=== PATIENT | female | born 1965 | race Caucasian/White ===

== ENCOUNTER → 2016-08-30 | Outpatient (REF) | payer OTHER ==
[~2016-08-30] MED LIST: /CELE20CA OR; /DULO30CA PO; /LOR25TA PO; /MIRT30TA OR; /TIOT18INH INH; ACET500C OR; ADVAIR PO; CALCTAB22 OR; LIDO5DIS EX; MELOPOW PO; MULTIVIT PO; OMEP20TA7 OR; QVAR INH; SIMV20TA2 OR; SING10TA31 OR; TIZA2TAB OR; TOPI100T OR; TYLENOL #3 OR; VARE1TA OR; VENTAER INFIL; VICO5TAB OR; VIT D 2000 PO; advil PO
== END ==
LOC: M SFHCWAGY 15:32
PROVIDERS: ATTEND Family Medicine
DX: Z12.4 Encounter for screening for malignant neoplasm of cervix (principal); R87.5 Abnormal microbiological findings in specimens from female genital organs

== ENCOUNTER → 2016-08-30 | Outpatient (CLI) | payer OTHER ==
--- NOTE | 2016-08-30 16:46 | REP ---
BILATERAL MAMMOGRAM: HISTORY: Family history premenopausal breast cancer in mother. COMPARISON: 07/04/2014 as well as other prior exams. The breast parenchyma is heterogeneously dense limiting the sensitivity of the mammogram. I see no definite mass. No architectural distortion is seen. No clustered microcalcifications are seen. Small axillary lymph nodes are present. IMPRESSION: ACR 2 benign. No mass or clustered microcalcifications. Heterogeneously dense breast parenchymal limits the sensitivity of the mammogram. Given the increased density of the breasts and family history, I would recommend MRI of the breasts. BI-RADS/ACR category 2 mammogram. Benign finding(s). Routine annual screening mammography (for women over age 40). This mammogram was interpreted with the aid of an FDA-approved computer-aided detection system. The patient states she/he had a clinical breast exam in August 2016. The patient letter being requested is M1
== END ==
LOC: M WHC 14:46
PROVIDERS: ATTEND Family Medicine
DX: Z12.31 Encounter for screening mammogram for malignant neoplasm of breast (principal); R92.8 Other abnormal and inconclusive findings on diagnostic imaging of breast

== ENCOUNTER → 2016-08-30 | Outpatient (CLI) | payer OTHER ==
--- NOTE | 2016-09-03 10:56 | DEXA ---
AP SPINE L1 - L4 1.288 0.8 1.7 LT FEMUR TOTAL 0.787 -1.7 -0.9 RT FEMUR TOTAL 0.774 -1.9 -1.0 TOTAL BODY TOTAL OTHER DUAL FEMUR FRAX* ASSESSMENT Risk factors: Glucocorticoids (chronic), tobacco user. 10 year probability of fracture Major osteoporotic fracture 11.3 % Hip fracture 3.9 % COMMENTS: Normal bone densitometry of the spine. There is low bone density of the hips. The density of the spine is increased 2.7% since 07/04/2014. The density of the left hip has decreased 5.3% since 07/04/2014. The density of the right hip has decreased 5.3% since 07/04/2014. FOLLOW-UP: Recommendation for the next bone density exam: 2 years. ELIZABETH
== END ==
LOC: M WHC 14:49
PROVIDERS: ATTEND Family Medicine
DX: M81.8 Other osteoporosis without current pathological fracture (principal)

== ENCOUNTER → 2016-10-02 | Outpatient (CLI) | payer OTHER ==
--- NOTE | 2016-10-02 16:31 | REP ---
Pelvic sonography: History: Pelvic pain. Comparison study November 17, 2014. Findings: Transabdominal and transvaginal scanning are performed. Uterine dimensions are normal measured at 8.6 x 4.8 x 5.9 cm. Endometrial echo is 0.6 cm thick and centrally placed. There is a 1.7 x 1.6 x 1.1 cm fibroid to the right of midline in the uterus. The remainder of the uterine texture is somewhat heterogeneous. There is no evidence of free fluid. Right ovary measures 4.3 x 2.1 x 3.0 cm. It contains a 2.9 x 1.8 x 2.0 cm simple cyst. Its Doppler flow is normal with resistive index 0.50. The left ovary has a normal appearance with dimensions of 2.0 x 1.2 x 2.5 cm. Its Doppler flow was normal resistive index 0.54. Impression: Small right-sided fibroid. 2.9 cm simple cyst right ovary.
== END ==
LOC: M WHC 10:09
PROVIDERS: ATTEND Family Medicine
DX: R10.2 Pelvic and perineal pain (principal)

== ENCOUNTER → 2016-11-07 | Outpatient (REF) | payer OTHER ==
[2016-11-07 13:30] LABS: BASO % 0.4 % (0.0-1.0); EOS # 0.1 K/mm3 (0.0-0.50); EOS % 0.9 % (0.0-3.0); LARGE UNSTAINED CELL # 0.2 K/mm3 (0.0-0.4); LARGE UNSTAINED CELL % 2.6 % (0.0-4.0); LYMPH # 1.6 K/mm3 (1.5-4.5); LYMPH % 23.7 % (24.0-44.0); MEAN CORPUSCULAR HEMOGLOBIN 24.1 pg (27.0-33.0); MEAN CORPUSCULAR HGB CONC 29.4 g/dl (32.0-36.5); MEAN CORPUSCULAR VOLUME 81.9 fl (80.0-96.0); MONO # 0.4 K/mm3 (0.0-0.8); MONO % 6.1 % (0.0-5.0); NEUTROPHILS # 4.5 K/mm3 (1.8-7.7); NEUTROPHILS % 66.3 % (36.0-66.0); PLATELET COUNT, AUTOMATED 329 k/mm3 (150-450); RED CELL DISTRIBUTION WIDTH 17.6 % (11.5-14.5); WHITE BLOOD COUNT 6.8 K/mm3 (4.0-10.0)
[2016-11-07 14:10] LABS: ALBUMIN 3.6 GM/DL (3.2-5.2)
== END ==
LOC: M LABDRAW1 12:30
PROVIDERS: ATTEND Orthopaedic Surgery
DX: Z01.818 Encounter for other preprocedural examination (principal); D64.9 Anemia, unspecified; M25.552 Pain in left hip; M16.12 Unilateral primary osteoarthritis, left hip

== ENCOUNTER → 2017-10-08 | Outpatient (REF) | payer OTHER ==
[2017-10-08 11:09] LABS: HEMATOCRIT 49.9 % (36.0-47.0); HEMOGLOBIN 15.8 g/dl (12.0-16.0); MEAN CORPUSCULAR HEMOGLOBIN 29.5 pg (27.0-33.0); MEAN CORPUSCULAR HGB CONC 31.7 g/dl (32.0-36.5); MEAN CORPUSCULAR VOLUME 93.1 fl (80.0-96.0); PLATELET COUNT, AUTOMATED 297 10^3/uL (150-450); RED BLOOD COUNT 5.36 10^6/uL (4.00-5.40); RED CELL DISTRIBUTION WIDTH 14.1 % (11.5-14.5); WHITE BLOOD COUNT 9.7 10^3/uL (4.0-10.0)
[2017-10-08 11:50] LABS: VITAMIN B12 LEVEL 270 PG/ML (247-911)
[2017-10-08 11:59] LABS: ALBUMIN 3.9 GM/DL (3.2-5.2); ALBUMIN/GLOBULIN RATIO 1.39 (1.00-1.93); ALKALINE PHOSPHATASE 64 U/L (45-117); ALT/SGPT 14 U/L (12-78); ANION GAP 6 MEQ/L (8-16); AST/SGOT 14 U/L (7-37); BILIRUBIN,TOTAL 0.3 MG/DL (0.2-1.0); BLOOD UREA NITROGEN 10 MG/DL (7-18); CALCIUM LEVEL 9.2 MG/DL (8.5-10.1); CARBON DIOXIDE LEVEL 29 MEQ/L (21-32); CHLORIDE LEVEL 108 MEQ/L (98-107); CHOLESTEROL LEVEL 165 MG/DL (<200); CHOLESTEROL RISK RATIO 2.578 (<5); CREATININE FOR GFR 0.67 MG/DL (0.55-1.30); FERRITIN 9 NG/ML (8-252); GLOMERULAR FILTRATION RATE > 60.0 (>51); GLUCOSE, FASTING 91 MG/DL (70-100); HDL CHOLESTEROL 64 MG/DL (>40); IRON (FE) 68 UG/DL (50-170); LDL CHOLESTEROL 75.4 MG/DL (<100); NON-HDL-C 101 MG/DL; POTASSIUM SERUM 4.2 MEQ/L (3.5-5.1); SODIUM LEVEL 143 MEQ/L (136-145); TOTAL PROTEIN 6.7 GM/DL (6.4-8.2); TRIGLYCERIDES LEVEL 128 MG/DL (<150)
== END ==
LOC: M LABDRAW1 10:43
DX: D50.9 Iron deficiency anemia, unspecified (principal); E78.2 Mixed hyperlipidemia; E53.8 Deficiency of other specified B group vitamins

== ENCOUNTER → 2017-12-05 | Outpatient (REF) | payer OTHER | LOC: M SFHCWAGY 14:32 | DX: Z12.4 Encounter for screening for malignant neoplasm of cervix (principal) ==

== ENCOUNTER → 2017-12-05 | Outpatient (CLI) | payer OTHER | LOC: M WHC 14:05 | DX: R92.2 Inconclusive mammogram (principal) | CPT/HCPCS: 77067 ==

== ENCOUNTER → 2017-12-29 | Outpatient (CLI) | payer OTHER | LOC: M RAD 11:28 | DX: R92.2 Inconclusive mammogram (principal); N63.23 Unspecified lump in the left breast, lower outer quadrant | CPT/HCPCS: 77065 ==

== ENCOUNTER → 2018-01-12 | Outpatient (CLI) | payer OTHER | LOC: M WHC 10:08 | DX: N93.8 Other specified abnormal uterine and vaginal bleeding (principal); D25.1 Intramural leiomyoma of uterus | CPT/HCPCS: 76830 ==

== ENCOUNTER → 2018-02-06 | Outpatient (REF) | payer OTHER | LOC: M SFHCWAGY 15:46 | DX: R87.618 Other abnormal cytological findings on specimens from cervix uteri (principal) ==

== ENCOUNTER → 2018-11-25 | Outpatient (CLI) | payer OTHER ==
[~2018-11-25] MED LIST changes: -/CELE20CA OR; -/DULO30CA PO; -/MIRT30TA OR; -/TIOT18INH INH; +CELE1CAP4 OR; +CYMB1CAP5 PO; +MIRT1TAB21 OR; +SPIR1CAP INH
--- NOTE | 2018-11-25 12:20 | REP ---
Chest x-ray: Two views. History: COPD. Comparison study: Jan 23 2012. Findings: The lungs remain quite hyperinflated consistent with COPD. No infiltrate is seen. Pleural angles are sharp. Heart size is normal. Pulmonary vasculature is not increased. No significant bony abnormality is seen. Impression: Hyperinflation consistent with some degree of COPD. Otherwise no acute disease. Electronically Signed by Juan Sauer MD 11/25/2018 12:11 P
== END ==
LOC: M SMT 09:46
PROVIDERS: ATTEND Internal Medicine Pulmonary Disease
DX: J44.9 Chronic obstructive pulmonary disease, unspecified (principal)